=== PATIENT | male | born 1975 | race Caucasian/White ===

== ENCOUNTER 2020-01-31 22:39 | Emergency (ER) | payer OTHER ==
[~2020-01-31] VITALS: Ht 177.8 cm; Wt 62.6 kg
[2020-01-31] MEDS ORDERED: IV NORMAL SALINE 1000 ML BAG IV ONE (22:45)
[2020-01-31 23:06] LABS: BASOPHILS % (AUTO) 0.6 % (0.0-2.0); EOSINOPHILS # (AUTO) 0.2 K/uL (0.0-0.7); EOSINOPHILS % (AUTO) 2.8 % (0.0-7.0); HEMATOCRIT 38.5 % (36.7-47.1); HEMOGLOBIN 12.5 g/dL (12.5-16.3); LYMPHOCYTES # (AUTO) 1.4 K/uL (20.0-40.0); LYMPHOCYTES % (AUTO) 20.3 % (20.5-51.5); MEAN CORPUSCULAR HEMOGLOBIN 27.7 uug (23.8-33.4); MEAN CORPUSCULAR HGB CONC 32 g/dL (32.5-36.3); MEAN CORPUSCULAR VOLUME 85.6 fL (73.0-96.2); MONOCYTES # (AUTO) 0.7 K/uL (2.0-10.0); MONOCYTES % (AUTO) 10.1 % (0.0-11.0); NEUTROPHILS # (AUTO) 4.7 K/uL (1.8-8.9); NEUTROPHILS % (AUTO) 66.2 % (38.5-71.5); PLATELET COUNT (AUTO) 232 K/uL (152-348); WHITE BLOOD COUNT (AUTO) 7.1 K/uL (3.6-10.2)
--- NOTE | 2020-01-31 23:09 | NUR ---
patient bib ra 89 from the [facility] for intentonal overdose on his wellbutrin and zyprexa tablets. patient states taking a total of 10 tablets all togther. patient is alert and oriented x4, denies sob or cp at this time, 1:1 sitter at bedside for safety.
--- NOTE | 2020-01-31 23:11 | NUR ---
DR CHAPA AT BEDSIDE FOR MSE.
[2020-01-31 23:13] LABS: CARBON DIOXIDE 28 mmol/L (21-32); CHLORIDE 106 mmol/L (98-107); GLUCOSE 129 mg/dL (74-106); UREA NITROGEN, BLOOD 13 mg/dL (7-18)
[2020-01-31 23:19] LABS: ACETAMINOPHEN 7.4 ug/mL (10-30); ALANINE AMINOTRANSFERASE 132 U/L (16-63); ALKALINE PHOSPHATASE 62 U/L (50-136); ASPARTATE AMINOTRANSFERASE 117 U/L (15-37); BILIRUBIN,DIRECT 0.1 mg/dL (0.0-0.2); BILIRUBIN,TOTAL 0.2 mg/dL (0.2-1.0); CREATINE KINASE, TOTAL 78 U/L (39-308); TOTAL PROTEIN, SERUM 7.2 g/dL (6.4-8.2)
[2020-01-31 23:20] LABS: ETHANOL < 3 MG/DL (0-0)
[2020-01-31 23:26] LABS: THYROID STIMULATING HORMONE 1.785 mIU/mL (0.358-3.740)
[2020-01-31] MEDS ORDERED: BUPR150T5 PO (23:31)
[2020-01-31] MEDS ORDERED: OLAN10TA3 PO (23:31)
[2020-01-31 23:32] LABS: *BILIRUBIN,URIN NEGATIVE (NEGATIVE); *BLOOD, URINE NEGATIVE (NEGATIVE); *CLARITY,URINE CLEAR (CLEAR); *COLOR,URINE YELLOW (YELLOW); *KETONES,URINE NEGATIVE (NEGATIVE); *UROBILINOGEN,URINE 0.2 E.U./dl (NORMAL); LEUKOCYTE ESTERASE ,URINE NEGATIVE (NEGATIVE); NITRITE, URINE NEGATIVE (NEGATIVE); PH,URINE 5.5 (5.0-8.0); UGLUCOSE NEGATIVE (NEGATIVE)
[2020-01-31 23:37] LABS: *AMPHETAMINE, URINE NEGATIVE (NEGATIVE); *BARBITURATE, URINE NEGATIVE (NEGATIVE); *CANNABINOID, URINE NEGATIVE (NEGATIVE); *COCCAINE, URINE NEGATIVE (NEGATIVE); *OPIATE, URINE NEGATIVE (NEGATIVE); *PHENCYCLIDINE SCREEN,URINE NEGATIVE (NEGATIVE)
--- NOTE | 2020-02-01 00:06 | NUR ---
Spoke with Art from crisis team, will see patient tonight.
--- NOTE | 2020-02-01 01:41 | NUR ---
Art crisis electronics department manager here now.
--- NOTE | 2020-02-01 02:15 | NUR ---
Patient is voluntary at this time, unable to find placement due to covid+, Art will notify Keri and she will follow up in the morning regarding placement. [employer] aware.
--- NOTE | 2020-02-01 03:00 | NUR ---
Patient asleep at this time.
--- NOTE | 2020-02-01 07:04 | NUR ---
report given to KAVITA Valadez.
--- NOTE | 2020-02-01 07:10 | NUR ---
Pt is resting comfortably in bed in no acute distress.
--- NOTE | 2020-02-01 07:45 | NUR ---
Pt is awake calm and cooperative. Pt denies SI/HI at this time, and states he just want his medications changed.
--- NOTE | 2020-02-01 08:00 | NUR ---
Hospital breakfast tray provided, pt ate w/ moderate appetite.
--- NOTE | 2020-02-01 08:10 | NUR ---
Keri Good ANALYTICAL DATA SCIENTIST called and states attentive plan of care.
--- NOTE | 2020-02-01 08:15 | NUR ---
Placed a call to DR Fuentes, per request he will evaluate the Pt via [facility] tele psych. Pt is awake A/O X4 and agreed to the evaluation.
[2020-02-01] MEDS ORDERED: QUETIAPINE FUMARATE 25 MG TABLET PO ONE (09:00)
[2020-02-01] MEDS ORDERED: buPROPion XL 150 MG TAB.SR.24H PO ONE (09:00)
[2020-02-01] MEDS ORDERED: QUETIAPINE FUMARATE 100 MG TABLET ONE (09:08)
--- NOTE | 2020-02-01 10:29 | NUR ---
Keri Good LCSW at the bedside for psych re-eval.
--- NOTE | 2020-02-01 10:45 | NUR ---
IV removed. Catheter intact and site benign. Pressure and 4x4 gauze applied to site. No bleeding noted.
--- NOTE | 2020-02-01 10:50 | NUR ---
Patient given written and verbal discharge instructions. Patient verbalizes understanding of instructions. Patient is ambulatory with steady gait. Patient given list of available shelters in surrounding area.
[2020-02-01 10:51] VITALS: BP 110/78
== END 2020-02-01 10:53 | disposition home or self-care (01) ==
LOC: ER 22:41
DX: T43.292A Poisoning by other antidepressants, intentional self-harm, initial encounter (principal); T43.592A Poisoning by other antipsychotics and neuroleptics, intentional self-harm, initial encounter; Y92.89 Other specified places as the place of occurrence of the external cause; Z59.0 Homelessness; Z91.5 Personal history of self-harm; F20.9 Schizophrenia, unspecified; F32.9 Major depressive disorder, single episode, unspecified; Z82.49 Family history of ischemic heart disease and other diseases of the circulatory system
CPT/HCPCS: 36415; 80048; 80076; 80307 ×2; 80329; 81001; 82550; 84443; 85025; 85730; 93005; 96360; 99285; G0480; A4663; J7030